=== PATIENT | male | born 1980 | race Caucasian/White ===

== ENCOUNTER 2018-07-23 10:46 | Emergency (ER) | payer OTHER ==
[2018-07-23] MEDS ORDERED: TORAdol 30 mg Injection IM ONE (11:05)
--- NOTE | 2018-07-23 11:12 | ERPHSYRPT ---
- History of Present Illness Time Seen by Provider: 07/23/18 11:00 Source: patient Exam Limitations: no limitations Patient Subjective Stated Complaint: patient was walking down [address] and twisted his ankle its swollen and he cannot walk on it he is trying to walk home to [place] Triage Nursing Assessment: pt alert nad orietnedx3, patient has onld iv makr on right ac, skin warm dry and itnact, right ankle is swollen on out side area, tender to touch, pedal pulse present. bruising noted , skin wamr dry and intact Physician History: 38-year-old white male arrives with complaint of pain and swelling in his right ankle symptoms for 20-30 minutes. Patient states that he was walking down the road and twisted his ankle. Past medical history includes substance abuse, which includes methamphetamine and heroin and marijuana. Patient states he was released from [facility] where he was treated last night for diverticulitis nausea and vomiting. Past surgical history includes ORIF of the right ankle. Social history includes polysubstance abuse including methamphetamines, heroin, marijuana Patient also smokes tobacco Patient denies alcohol use . Method of Injury: twisted Occurred: just prior to arrival Severity of Pain-Max: moderate Severity of Pain-Current: moderate Lower Extremities Pain: ankle: right Modifying Factors: Improves With: movement Associated Symptoms: unable to bear weight Allergies/Adverse Reactions: Sulfa (Sulfonamide Antibiotics) Allergy (Verified 07/23/18 10:51) Hx Tetanus, Diphtheria Vaccination/Date Given: Yes Hx Influenza Vaccination/Date Given: No Hx Pneumococcal Vaccination/Date Given: No Immunizations Up to Date: Yes - Review of Systems Constitutional: No Fever, No Chills Eyes: No Symptoms Ears, Nose, & Throat: No Symptoms Respiratory: No Cough, No Dyspnea Cardiac: No Chest Pain, No Edema, No Syncope Abdominal/Gastrointestinal: No Abdominal Pain, No Nausea, No Vomiting, No Diarrhea Genitourinary Symptoms: No Dysuria Musculoskeletal: Other (right ankle pain and swelling) Skin: No Rash Neurological: No Dizziness, No Focal Weakness, No Sensory Changes Psychological: No Symptoms, Drug Abuse (History of polysubstance abuse released from [facility] yesterday), No Suicidal Ideations, No Homicidal Ideations Endocrine: No Symptoms All Other Systems: Reviewed and Negative - Past Medical History Pertinent Past Medical History: Yes GI Medical History: Diverticulitis - Past Surgical History Past Surgical History: Yes Musculoskeletal: Orthopedic Surgery - Social History Smoking Status: Current every day smoker Drug Use: marijuana, methamphetamines, heroin Patient Lives Alone: No - Nursing Vital Signs Nursing Vital Signs: Initial Vital Signs Temperature 98.3 F 07/23/18 10:48 Pulse Rate 107 H 07/23/18 10:48 Respiratory Rate 18 07/23/18 10:48 Blood Pressure 102/86 07/23/18 10:48 O2 Sat by Pulse Oximetry 96 07/23/18 10:48 Pain Scale Pain Intensity 9 - Physical Exam General Appearance: mild distress Eyes, Ears, Nose, Throat Exam: moist mucous membranes Neck Exam: non-tender, supple Cardiovascular/Respiratory Exam: chest non-tender, normal breath sounds, regular rate/rhythm, no respiratory distress Gastrointestinal/Abdominal Exam: non-tender, guarding Hips Exam: bilateral: non-tender, normal inspection, normal range of motion, no evidence of injury Legs Exam: bilateral leg: non-tender, normal inspection, normal range of motion , no evidence of injury Knees Exam: bilateral knee: non-tender, normal inspection, normal range of motion, no evidence of injury Ankle Exam: right ankle: other (right ankle with edema medially and laterrally, mtenderness with palpation medially, decreased range of motion right ankle secondary to pain, right dorsal pedal, posterior tibial pulses intact 2 over 4. Sensation intact to all toes, good capillary refill to all toes), left ankle: non-tender, normal inspection, normal range of motion, no evidence of injury Foot Exam: bilateral foot: non-tender, normal inspection, normal range of motion , no evidence of injury DTR - Lower Extremities Exam: ankle (R): 2+, ankle (L): 2+ Neuro/Tendon Exam: normal sensation, normal motor functions Mental Status Exam: alert, oriented x 3, cooperative Skin Exam: normal color, warm, dry SpO2 Interpretation: normal (96%) SpO2: 96 Oxygen Delivery: Room Air - Course Nursing assessment & vital signs reviewed: Yes - Radiology Exams Right Ankle X-ray Interpretation: Teleradiologist Report (x-ray right ankle: Impression: 1. Status post ORIF of fractures involving the medial malleolus and talus. 2. No acute bony injury or malalignment of the visualize right ankle) Ordered Tests: Active Orders 24 hr Category Date Time Status Crutches STAT Care 07/23/18 13:18 Active Splint STAT Care 07/23/18 13:18 Active ANKLE (3 VIEWS) Stat Exams 07/23/18 11:05 Ordered Medication Summary Discontinued Medications Generic Name Dose Route Start Last Admin Trade Name Robert PRN Reason Stop Dose Admin Ketorolac Tromethamine 60 mg 07/23/18 11:05 07/23/18 11:34 Toradol 30 Mg Injection IM 07/23/18 11:06 60 mg STAT ONE Administration Ketorolac Tromethamine Confirm 07/23/18 11:27 Toradol 30 Mg Injection Administered 07/23/18 11:28 Dose 60 mg .ROUTE .STK-MED ONE - Progress Progress: improved Progress Note: 07/23/18 13:19 Patient with complaint of pain in his right ankle after twisting it prior to arrival. Patient with prior history of ORIF of the right medial malleolus and talus. X-ray of the right ankle read by virtual status post ORIF of fractures involving the medial malleolus and talus. No acute bony injury or malalignment individualize right ankle. Patient improving after ice to the right ankle and Toradol. Will have Nurse Has place., Aircast and place patient on crutches, write a prescription for Naprosyn. - Departure Time of Disposition: 13:21 Departure Disposition: Home Clinical Impression: Right ankle sprain Qualifiers: Encounter type: initial encounter Involved ligament of ankle: unspecified ligament Qualified Code(s): S93.401A - Sprain of unspecified ligament of right ankle, initial encounter Right ankle pain Qualifiers: Chronicity: acute Qualified Code(s): M25.571 - Pain in right ankle and joints of right foot Condition: Fair Critical Care Time: No Referrals: DOCTOR,NO FAMILY [Primary Care Provider] - Instructions: Ankle Sprain (DC) Additional Instructions: Return home. Ice and elevate your right ankle 24-48 hours. Naprosyn as prescribed. Follow-up with your family doctor or orthopedist if symptoms are worse no better in 48 hours or persist longer than one week. Crutches weightbearing as tolerated. Return for acute distress or for severe symptoms. Prescriptions: Naproxen 500 mg [Naprosyn 500 MG] 500 mg PO BID #20 tablet
[2018-07-23] MEDS ORDERED: TORAdol 30 mg Injection ONE (11:27)
[2018-07-23 12:04] VITALS: BP 132/89; PULSE 85
[2018-07-23 13:17] VITALS: O2SAT 96
--- NOTE | 2018-07-23 22:23 | XRAY ---
Indication: Pain following twisting injury. Comparison: None 3 views of the right ankle demonstrates 2 medial malleolus orthopedic screws and 2 talus orthopedic screws fixating old fractures. Mild soft tissue swelling. No other bony, articular, or soft tissue abnormalities. Comment: Preliminary interpretation was made by [facility]. No discrepancy.
== END 2018-07-23 14:05 | disposition home or self-care (01) ==
LOC: ED 10:46
DX: S93.401A Sprain of unspecified ligament of right ankle, initial encounter (principal); M25.571 Pain in right ankle and joints of right foot; Z72.0 Tobacco use; X50.1XXA Overexertion from prolonged static or awkward postures, initial encounter; Y93.01 Activity, walking, marching and hiking; Y92.410 Unspecified street and highway as the place of occurrence of the external cause; F19.10 Other psychoactive substance abuse, uncomplicated
CPT/HCPCS: 73610; 96372; 99284; J1885